=== PATIENT | female | born 1955 | race Caucasian/White ===

== ENCOUNTER 2017-06-14 05:35 | Inpatient (IN) | payer BC ==
[~2017-06-14] VITALS: Ht 157.5 cm; Wt 91.5 kg
[~2017-06-14 05:35] MED LIST: ACCU40TA PO; AMLO10TA2 PO; ASPI81TA5 PO; BIOTCAP PO; CLON0.1T PO; DAILTAB38 PO; EMPA1TAB3 PO; GLUC1000 PO; INSU1INJ14 SQ; VITA1000 PO
[2017-06-14] MEDS ORDERED: POVIDONE IODINE 5% (ANTISEPSIS KIT) 4 APPLICATIONS EACH NARE PRN (06:00)
[2017-06-14] MEDS ORDERED: LACTATED RINGER'S 1000 ML IV PRN (06:00)
[2017-06-14] MEDS ORDERED: ceFAZolin 2 GM PREMIX 50 ML IV SCH (06:00)
[2017-06-14] MEDS ORDERED: CHLORHEXIDINE GLUCONATE 2 % 1 PACK (2 CLOTHS) TOPICAL PRN (06:00)
[2017-06-14] MEDS ORDERED: SODIUM CHLORID 0.9% 500 ML IV PRN (06:00)
[2017-06-14] MEDS ORDERED: METOPROLOL TARTRATE 25 MG TAB PO PRN (06:00)
[2017-06-14] MEDS ORDERED: NOVORP2 SQ (06:28)
[2017-06-14] MEDS: INSULIN HUMAN REGULAR 1,000 UNITS/10 ML VIAL SQ PRN ×2 (06:38→21:11)
[2017-06-14 06:58] LABS: INTERNATIONAL NORMALIZED RATIO 0.9 RATIO; PROTHROMBIN TIME - PATIENT 10.3 SEC (9.8-11.6)
[2017-06-14] MEDS ORDERED: MANNITOL INJ 50 ML ONE (07:01)
[2017-06-14] MEDS ORDERED: APREPITANT 40 MG CAP ONE (07:11)
[2017-06-14] MEDS ORDERED: FAMOTIDINE 20 MG/2 ML VIAL ONE (07:12)
[2017-06-14] MEDS ORDERED: MIDAZOLAM HCL 2 MG/2 ML VIAL ONE (07:16)
[2017-06-14] MEDS ORDERED: fentaNYL CITRATE 250 MCG/5 ML AMP ONE ×2 (08:58→11:55)
[2017-06-14] MEDS ORDERED: HYDROmorphone HCL PF 2 MG/ML VIAL ONE (08:59)
[2017-06-14] MEDS ORDERED: SUGAMMADEX SODIUM 200 MG/2 ML VIAL IV PUSH ONE ×2 (08:59)
[2017-06-14] MEDS ORDERED: ONDANSETRON HCL 4 MG/2 ML VIAL IV PUSH PRN (11:30)
[2017-06-14] MEDS ORDERED: oxyCODONE/ACETAMINOPHEN 10 MG/325 MG TAB PO PRN (11:30)
[2017-06-14] MEDS: SODIUM CHLOR 0.9% 1000 ML INJ 1,000 ML IV SCH ×2 (12:00→23:00)
[2017-06-14] MEDS: ACETAMINOPHEN 1000 MG/100 ML VIAL IV SCH ×3 (12:00→23:02)
[2017-06-14] MEDS ORDERED: ePHEDrine/NS 25 MG/5 ML SYR IV ONE (12:00)
[2017-06-14] MEDS: PANTOPRAZOLE SODIUM 40 MG VIAL IV PUSH SCH (12:00)
[2017-06-14] MEDS ORDERED: LACTATED RINGER'S 1000 ML INJ 2,000 ML IV ONE (12:00)
[2017-06-14] MEDS ORDERED: ONDANSETRON HCL 4 MG/2 ML VIAL IV PUSH ONE (12:00)
[2017-06-14] MEDS ORDERED: PROPOFOL 200 MG/20 ML AMP IV ONE (12:00)
[2017-06-14] MEDS ORDERED: *HYDROmorphone PF 1 MG VIAL PERIprocedural Use ONLY ONE ×3 (12:09→14:55)
[2017-06-14] MEDS ORDERED: *LABETALOL HCL 100 MG/20 ML VIAL PERIprocedural Use ONLY ONE (12:13)
[2017-06-14] MEDS ORDERED: *ONDANSETRON 4 MG VIAL PERIprocedural Use ONLY ONE (12:15)
[2017-06-14 12:24] LABS: AUTOMATED NEUTROPHIL # 15.2 TH/MM3 (1.8-7.7); BASOPHIL # 0.1 TH/MM3 (0-0.2); BASOPHIL % 0.7 % (0.0-2.0); EOSINOPHIL # 0.1 TH/MM3 (0-0.4); EOSINOPHIL % 0.4 % (0.0-4.0); HEMATOCRIT 40.3 % (35.0-46.0); HEMO FLAGS DIFF FINAL; LYMPH % 8.5 % (9.0-44.0); LYMPHOCYTE # 1.5 TH/MM3 (1.0-4.8); MEAN CELL VOLUME 81.8 FL (80.0-100.0); MEAN CORPUSCULAR HEMOGLOBIN 26.7 PG (27.0-34.0); MEAN CORPUSCULAR HGB CONC 32.6 % (32.0-36.0); MONO % 6.6 % (0.0-8.0); NEUT % 83.8 % (16.0-70.0); PLATELET COUNT 266 TH/MM3 (150-450); RED BLOOD COUNT 4.92 MIL/MM3 (4.00-5.30); RED CELL DISTRIBUTION WIDTH 14.1 % (11.6-17.2); WHITE BLOOD COUNT 18.1 TH/MM3 (4.0-11.0)
[2017-06-14] MEDS ORDERED: DO NOT ADM ANY ANTICOAGULANT DRUGS PRN (12:30)
[2017-06-14 12:50] LABS: BICARBONATE 22.2 MEQ/L (21.0-32.0)
[2017-06-14] MEDS ORDERED: *PROMETHAZINE 25 MG/ML VIAL PERIprocedural use ONLY ONE (12:55)
--- NOTE | 2017-06-14 13:32 | EKG ---
Date Performed: 06/14/2017 Time Performed: 06:40:10 PTAGE: 61 years EKG: Sinus rhythm Left axis deviation Poor R wave progression - probable normal variant Borderline ECG NO PREVIOUS TRACING DOCTOR: Mary Kate Mccollum Interpretating Date/Time 06/14/2017 13:31:21
[2017-06-14] MEDS: CLINDAMYCIN INJ 900 MG in SODIUM CHLORIDE 0.9% INJ 100 ML IV SCH ×2 (14:55→22:02)
[2017-06-14 16:00] VITALS: BP 136/64; PULSE 103; RESP 16; TEMP 96.6; O2SAT 98
[2017-06-14] MEDS ORDERED: metFORMIN HCL 500 MG TAB PO SCH (18:00)
--- NOTE | 2017-06-14 18:02 | PD.CONS ---
HPI Service [facility] Consult Requested By Reason for Consult post-op medical management Primary Care Physician No Primary Care Physician Diagnoses: History of Present Illness patient is a 61 y/o female with history of diabetes mellitus, hypertension, who underwent left nephrectomy earlier today. she says that she was found to have a left kidney mass few years ago but this has been followed up over the past few years. she says that she had another imaging study which showed enlarged mass for which she was advised to have nephrectomy. she denies any urinary complaints including hematuria. at the time of my evaluation she was fairly comfortable although was complaining of some pain to the left flank. otherwise she denies any chest pain, sob, nausea or vomiting. Review of Systems Constitutional: DENIES: Fever, Weight loss, Chills, Night Sweats Eyes: DENIES: Blurred vision, Diplopia, Vision loss, Double Vision Ears, nose, mouth, throat: DENIES: Tinnitus, Vertigo, Throat pain, Epistaxis Respiratory: DENIES: Apneas, Cough, Snoring, Wheezing, Hemoptysis, Sputum production, Shortness of breath Cardiovascular: DENIES: Chest pain, Palpitations, Syncope, Dyspnea on Exertion , PND, Lower Extremity Edema, Orthopnea, Claudication Gastrointestinal: COMPLAINS OF: Abdominal pain (left flank.), DENIES: Black stools, Bloody stools, Constipation, Diarrhea, Nausea, Vomiting, Difficulty Swallowing, Anorexia Genitourinary: DENIES: Urinary frequency, Urgency, Hematuria, Dysuria Musculoskeletal: DENIES: Joint pain, Muscle aches, Stiffness, Joint Swelling Integumentary: DENIES: Rash Neurologic: DENIES: Abnormal gait, Headache, Localized weakness, Paresthesias, Seizures, Speech Problems, Tremor, Poor Balance Psychiatric: DENIES: Anxiety, Confusion, Mood changes, Depression, Hallucinations, Agitation, Suicidal Ideation, Homicidal Ideation, Delusions Past Family Social History Allergies: Coded Allergies: Sulfa (Sulfonamide Antibiotics) (Verified Allergy, Severe, Rash, 06/13/17) cefaclor (Verified Allergy, Severe, Rash, 06/13/17) morphine (Verified Adverse Reaction, Severe, Nausea/Vomiting, 06/13/17) Uncoded Allergies: steroids (Allergy, Severe, Shortness of Breath, 06/13/17) Past Medical History diabetes mellitus hypertension Past Surgical History oophorectomy cholecystectomy hand surgery Reported Medications amlodipine aspirin accupril cholecalciferol insulin metformin jardiance Active Ordered Medications Current Medications Lactated Ringer's 1,000 ml @ 30 mls/hr Q24H PRN IV SEE LABEL COMMENTS Last administered on 06/14/17 06:20; Start 06/14/17 at 06:00; Stop 06/14/17 at 11:58 ; Status DC Sodium Chloride 500 ml @ 30 mls/hr [id number] PRN IV SEE LABEL COMMENTS; Start at 06:00; Stop 06/14/17 at 11:58; Status DC Metoprolol Tartrate (Lopressor) 25 mg SPORTS RECRUITER PRN PO SEE LABEL COMMENTS; Start 06/14/17 at 06:00; Stop 06/17/17 at 05:59 Povidone Iodine (Betadine 5% Antisepsis Kit) 1 applic SPORTS RECRUITER PRN EACH NARE SEE LABEL COMMENTS Last administered on 06/14/17 06:34; Start 06/14/17 at 06:00 ; Stop 06/17/17 at 05:59 Chlorhexidine Gluconate (Chlorhexidine 2% Cloth) 3 pack SPORTS RECRUITER PRN TOPICAL SEE LABEL COMMENTS Last administered on 06/14/17 06:00; Start 06/14/17 at 06:00 ; Stop 06/17/17 at 05:59 Insulin Human Regular (NovoLIN R INJ) See Protocol Table ... SPORTS RECRUITER PRN SQ SEE PROTOCOL TABLE Last administered on 06/14/17 06:38; Start 06/14/17 at 06:00 ; Stop 06/17/17 at 05:59 Cefazolin Sodium/ Dextrose 50 ml @ 150 mls/hr SPORTS RECRUITER IV Last administered on 06/14/17 08:57; Start 06/14/17 at 06:00; Stop 06/17/17 at 05:59 Mannitol 50 ml @ As Directed STK-MED ONCE .ROUTE ; Start 06/14/17 at 07:01; Stop 06/14/17 at 07:02; Status DC Aprepitant (Emend) 40 mg STK-MED ONCE .ROUTE Last administered on 06/14/17 07: 11; Start 06/14/17 at 07:11; Stop 06/14/17 at 07:12; Status DC Famotidine (Pepcid Inj) 20 mg STK-MED ONCE .ROUTE Last administered on 07:12; Start 06/14/17 at 07:12; Stop 06/14/17 at 07:13; Status DC Midazolam HCl (Versed Inj) 2 mg STK-MED ONCE .ROUTE Last administered on 07:16; Start 06/14/17 at 07:16; Stop 06/14/17 at 07:17; Status DC Fentanyl Citrate (fentaNYL INJ) 500 mcg STK-MED ONCE .ROUTE ; Start 06/14/17 at 08:58; Stop 06/14/17 at 08:59; Status DC Sugammadex Sodium (Bridion Inj) 200 mg STK-MED ONCE IV PUSH ; Start 06/14/17 at 08:59; Stop 06/14/17 at 09:00; Status DC Hydromorphone HCl (Dilaudid Pf Inj) 2 mg STK-MED ONCE .ROUTE ; Start 06/14/17 at 08:59; Stop 06/14/17 at 09:00; Status DC Acetaminophen (Ofirmev 1000 Mg/ 100 ml Inj) 1,000 mg Q6H IV Last administered on 06/14/17 17:12; Start 06/14/17 at 12:00 Oxycodone/ Acetaminophen (Percocet 10-325 Mg) 1 tab Q4H PRN PO PAIN SCALE 6 TO 10; Start 06/14/17 at 11:30 Oxycodone HCl (Roxicodone) 5 mg Q4H PRN PO PAIN SCALE 3 TO 5; Start 06/14/17 at 11:30 Pantoprazole Sodium (Protonix Inj) 40 mg Q24H IV PUSH Last administered on 06/14 12:00; Start 06/14/17 at 12:00 Ondansetron HCl (Zofran Inj) 4 mg Q6HR PRN IV PUSH NAUSEA OR VOMITING; Start at 11:30 Clindamycin Phosphate 900 mg/ Sodium Chloride 106 ml @ 212 mls/hr Q8H IV Last administered on 06/14/17 14:55; Start 06/14/17 at 13:00 Sodium Chloride 1,000 ml @ 125 mls/hr Q8H IV Last administered on 06/14/17 12 :00; Start 06/14/17 at 12:00 Hydromorphone HCl (Dilaudid Pf Inj) 0.2 mg Q4H PRN IV PUSH BREAKTHROUGH PAIN; Start 06/14/17 at 11:30 Fentanyl Citrate (fentaNYL INJ) 250 mcg STK-MED ONCE .ROUTE ; Start 06/14/17 at 11:55; Stop 06/14/17 at 11:56; Status DC Hydromorphone HCl (*DILAUDID PF INJ PERIprocedural ONLY) 1 mg STK-MED ONCE .ROUTE Last administered on 06/14/17 12:09; Start 06/14/17 at 12:09; Stop at 12:10; Status DC Labetalol HCl (*TRANDATE INJ PERIprocedural Use ONLY) 100 mg STK-MED ONCE .ROUTE ; Start 06/14/17 at 12:13; Stop 06/14/17 at 12:14; Status DC Ondansetron HCl (*ZOFRAN INJ PERIprocedural ONLY) 4 mg STK-MED ONCE .ROUTE Last administered on 06/14/17 12:15; Start 06/14/17 at 12:15; Stop 06/14/17 at 12:16; Status DC Miscellaneous Information ALL NURSING DEPARTME... UNSCH PRN .XX SEE LABEL COMMENTS; Start 06/14/17 at 12:30; Stop 06/15/17 at 12:29 Hydromorphone HCl (*DILAUDID PF INJ PERIprocedural ONLY) 1 mg STK-MED ONCE .ROUTE Last administered on 06/14/17 12:33; Start 06/14/17 at 12:33; Stop at 12:34; Status DC Promethazine HCl (*PHENERGAN INJ PERIprocedural ONLY) 25 mg STK-MED ONCE .ROUTE Last administered on 06/14/17 12:55; Start 06/14/17 at 12:55; Stop 06/14/17 at 12:56; Status DC Hydromorphone HCl (*DILAUDID PF INJ PERIprocedural ONLY) 1 mg STK-MED ONCE .ROUTE Last administered on 06/14/17 14:55; Start 06/14/17 at 14:55; Stop at 14:56; Status DC Amlodipine Besylate (Norvasc) 10 mg DAILY PO ; Start 06/15/17 at 09:00; Status UNV Cholecalciferol (Vitamin D3) 1,000 units DAILY PO ; Start 06/15/17 at 09:00; Status UNV Clonidine (Catapres) 0.1 mg BID PO ; Start 06/14/17 at 21:00; Status UNV Metformin HCl (Glucophage) 1,000 mg BIDPC PO ; Start 06/14/17 at 18:00; Status UNV Lisinopril (Prinivil) 40 mg DAILY PO ; Start 06/15/17 at 09:00; Status UNV Non-Formulary Medication 5 mg DAILY PO ; Start 06/15/17 at 09:00; Status UNV Non-Formulary Medication 25 mg DAILY PO ; Start 06/15/17 at 09:00; Status UNV Non-Formulary Medication 20 units HS SQ ; Start 06/14/17 at 21:00; Status UNV Non-Formulary Medication 1 tab DAILY PO ; Start 06/15/17 at 09:00; Status UNV Insulin Human Regular (NovoLIN R SUPPLEMENTAL SCALE) 1 ACHS SLIDING SCALE SQ ; Start 06/14/17 at 21:00; Status UNV Family History diabetes Social History no smoking or drinking. Physical Exam Vital Signs Vital Signs Date Time Temp Pulse Resp B/P (MAP) Pulse Ox O2 Delivery O2 Flow Rate FiO2 06/14/17 16:00 96.6 103 16 136/64 (88) 98 06/14/17 15:15 97.4 99 15 140/84 (102) 98 Nasal Cannula 2 06/14/17 14:45 102 15 143/81 (101) 98 Nasal Cannula 2 06/14/17 14:15 101 15 146/76 (99) 98 Nasal Cannula 2 06/14/17 13:45 99 15 144/81 (102) 97 Nasal Cannula 2 06/14/17 13:15 99 17 151/83 (105) 94 Nasal Cannula 2 06/14/17 12:45 100 15 156/75 (102) 94 Nasal Cannula 2 06/14/17 12:30 100 14 151/71 (97) 98 Nasal Cannula 3 06/14/17 12:15 102 14 161/84 (109) 98 Nasal Cannula 3 06/14/17 12:00 107 14 173/78 (109) 97 Nasal Cannula 3 06/14/17 11:47 97.7 111 14 178/85 (116) 97 Nasal Cannula 3 06/14/17 06:30 99.0 79 18 142/79 (100) 97 Physical Exam GENERAL: This is a well-nourished, well-developed patient, in no apparent distress. SKIN: No rashes, ecchymoses or lesions. Cool and dry. HEAD: Atraumatic. Normocephalic. No temporal or scalp tenderness. EYES: Pupils equal round and reactive. Extraocular motions intact. No scleral icterus. No injection or drainage. ENT: Nose without bleeding, purulent drainage or septal hematoma. Throat without erythema, tonsillar hypertrophy or exudate. Uvula midline. Airway patent. NECK: Trachea midline. No JVD or lymphadenopathy. Supple, nontender, no meningeal signs. CARDIOVASCULAR: Regular rate and rhythm without murmurs, gallops, or rubs. RESPIRATORY: Clear to auscultation. Breath sounds equal bilaterally. No wheezes , rales, or rhonchi. GASTROINTESTINAL: Abdomen soft, non-tender, nondistended. No hepato-splenomegaly , or palpable masses. No guarding. MUSCULOSKELETAL: Extremities without clubbing, cyanosis, or edema. No joint tenderness, effusion, or edema noted. No calf tenderness. Negative Homans sign bilaterally. NEUROLOGICAL: Awake and alert. Cranial nerves II through XII intact. Motor and sensory grossly within normal limits. Five out of 5 muscle strength in all muscle groups. Normal speech. Laboratory Laboratory Tests Test 06/14/17 06:18 06/14/17 12:16 Prothrombin Time 10.3 Prothromb Time International Ratio 0.9 White Blood Count 18.1 Red Blood Count 4.92 Hemoglobin 13.1 Hematocrit 40.3 Mean Corpuscular Volume 81.8 Mean Corpuscular Hemoglobin 26.7 Mean Corpuscular Hemoglobin Concent 32.6 Red Cell Distribution Width 14.1 Platelet Count 266 Mean Platelet Volume 7.9 Neutrophils (%) (Auto) 83.8 Lymphocytes (%) (Auto) 8.5 Monocytes (%) (Auto) 6.6 Eosinophils (%) (Auto) 0.4 Basophils (%) (Auto) 0.7 Neutrophils # (Auto) 15.2 Lymphocytes # (Auto) 1.5 Monocytes # (Auto) 1.2 Eosinophils # (Auto) 0.1 Basophils # (Auto) 0.1 CBC Comment DIFF FINAL Differential Comment Blood Urea Nitrogen 18 Creatinine 1.55 Random Glucose 288 Calcium Level 8.9 Sodium Level 139 Potassium Level 4.0 Chloride Level 105 Carbon Dioxide Level 22.2 Anion Gap 12 Estimat Glomerular Filtration Rate 34 Result Diagram: 06/14/17 1216 06/14/17 1216 Assessment and Plan Assessment and Plan A/P - left kidney mass- s/p left nephrectomy management per Urology. -diabetes mellitus; hold metformin due to renal insufficiency- resumed other home meds- accu-check with SSI -chronic renal insufficiency- will monitor -hypertension; resumed home meds- will monitor and adjust the regimen as needed. -leukocytosis- likely reactive- will monitor CBC and temps; CBC in am -DVT prophylaxis with SCD's- per Urology thank you for the consult. Discussed Condition With the patient. Israel Ramírez MD Jun 14, 2017 18:01
[2017-06-14] MEDS ORDERED: DEXTROSE 50% IN WATER 50 ML VIAL(D50) IV PUSH PRN (19:30)
[2017-06-14] MEDS ORDERED: GLUCAGON 1 MG/ML VIAL OTHER PRN (19:30)
[2017-06-14 20:00] VITALS: BP 133/62; PULSE 94; RESP 20; TEMP 98.8; O2SAT 92
[2017-06-14] MEDS ORDERED: INSULIN DEGLUDEC 20 UNIT SQ SCH (21:00)
[2017-06-14] MEDS: INSULIN NovoLIN REGULAR SUPPLEMENTAL SCALE SQ SCH (21:00)
[2017-06-14] MEDS: cloNIDine HCL 0.1 MG TAB PO SCH (21:08)
[2017-06-15] VITALS (7 sets, daily range): BP systolic 120–139; BP diastolic 59–66; PULSE 80–95; RESP 17–20; TEMP 97.1–98.5; O2SAT 92–96
[2017-06-15] MEDS: SODIUM CHLOR 0.9% 1000 ML INJ 1,000 ML IV SCH ×3 (04:00→21:00)
[2017-06-15] MEDS: CLINDAMYCIN INJ 900 MG in SODIUM CHLORIDE 0.9% INJ 100 ML IV SCH ×3 (04:30→20:26)
[2017-06-15] MEDS: ACETAMINOPHEN 1000 MG/100 ML VIAL IV SCH ×3 (05:18→16:31)
[2017-06-15] MEDS: INSULIN NovoLIN REGULAR SUPPLEMENTAL SCALE SQ SCH ×4 (06:00→20:26)
[2017-06-15 06:54] LABS: BICARBONATE 23.2 MEQ/L (21.0-32.0)
[2017-06-15 07:20] LABS: AUTOMATED NEUTROPHIL # 6.4 TH/MM3 (1.8-7.7); BASOPHIL # 0.1 TH/MM3 (0-0.2); BASOPHIL % 1.3 % (0.0-2.0); EOSINOPHIL # 0.1 TH/MM3 (0-0.4); EOSINOPHIL % 1.1 % (0.0-4.0); HEMATOCRIT 43.9 % (35.0-46.0); HEMO FLAGS DIFF FINAL; LYMPH % 21.2 % (9.0-44.0); LYMPHOCYTE # 2.1 TH/MM3 (1.0-4.8); MEAN CELL VOLUME 83.1 FL (80.0-100.0); MEAN CORPUSCULAR HEMOGLOBIN 26.4 PG (27.0-34.0); MEAN CORPUSCULAR HGB CONC 31.7 % (32.0-36.0); MONO % 10.9 % (0.0-8.0); NEUT % 65.5 % (16.0-70.0); PLATELET COUNT 224 TH/MM3 (150-450); RED BLOOD COUNT 5.28 MIL/MM3 (4.00-5.30); RED CELL DISTRIBUTION WIDTH 14.3 % (11.6-17.2); WHITE BLOOD COUNT 9.7 TH/MM3 (4.0-11.0)
[2017-06-15] MEDS ORDERED: NON-FORMULARY DRUG (Biotin 5 MG) PO SCH (09:00)
--- NOTE | 2017-06-15 09:20 | HHI.PR ---
Subjective Remarks resting comfortably with no distress. although complaining of some pain to the left flank. no nausea or vomiting. no fever. Objective Vitals Vital Signs Date Time Temp Pulse Resp B/P (MAP) Pulse Ox O2 Delivery O2 Flow Rate FiO2 06/15/17 08:00 97.4 87 18 123/60 (81) 92 06/15/17 04:00 97.6 87 18 134/63 (86) 92 06/15/17 00:00 97.9 90 18 126/59 (81) 92 06/14/17 20:00 98.8 94 20 133/62 (85) 92 06/14/17 16:00 96.6 103 16 136/64 (88) 98 06/14/17 15:15 97.4 99 15 140/84 (102) 98 Nasal Cannula 2 06/14/17 14:45 102 15 143/81 (101) 98 Nasal Cannula 2 06/14/17 14:15 101 15 146/76 (99) 98 Nasal Cannula 2 06/14/17 13:45 99 15 144/81 (102) 97 Nasal Cannula 2 06/14/17 13:15 99 17 151/83 (105) 94 Nasal Cannula 2 06/14/17 12:45 100 15 156/75 (102) 94 Nasal Cannula 2 06/14/17 12:30 100 14 151/71 (97) 98 Nasal Cannula 3 06/14/17 12:15 102 14 161/84 (109) 98 Nasal Cannula 3 06/14/17 12:00 107 14 173/78 (109) 97 Nasal Cannula 3 06/14/17 11:47 97.7 111 14 178/85 (116) 97 Nasal Cannula 3 I/O 06/14/17 06/14/17 06/14/17 06/15/17 06/15/17 06/15/17 07:00 15:00 23:00 07:00 15:00 23:00 Intake Total 1650 ml 1836 ml 1113 ml Output Total 275 ml 300 ml 350 ml Balance 1375 ml 1536 ml 763 ml Intake Oral 0 ml IV Total 1836 ml 1113 ml Other 1650 ml Output Urine Total 225 ml 300 ml 350 ml Estimated Blood Loss 50 ml # Bowel Movements 0 Result Diagram: 06/15/17 0544 06/15/17 0544 Objective Remarks GENERAL: This is a well-nourished, well-developed patient, in no apparent distress. CARDIOVASCULAR: Regular rate and regular rhythm without murmurs, gallops, or rubs. RESPIRATORY: Clear to auscultation. Breath sounds equal bilaterally. No wheezes , rales, or rhonchi. GASTROINTESTINAL: Abdomen soft, left flank tenderness, nondistended. Normal, active bowel sounds MUSCULOSKELETAL: Extremities without clubbing, cyanosis, or edema. NEURO: Alert & Oriented x4 to person, place, time, situation. Moves all ext x4 Procedures left nephrectomy Medications and IVs Current Medications Lactated Ringer's 1,000 ml @ 30 mls/hr Q24H PRN IV SEE LABEL COMMENTS Last administered on 06/14/17 06:20; Start 06/14/17 at 06:00; Stop 06/14/17 at 11:58 ; Status DC Sodium Chloride 500 ml @ 30 mls/hr [id number] PRN IV SEE LABEL COMMENTS; Start at 06:00; Stop 06/14/17 at 11:58; Status DC Metoprolol Tartrate (Lopressor) 25 mg FAMILY HELPER PRN PO SEE LABEL COMMENTS; Start 06/14/17 at 06:00; Stop 06/17/17 at 05:59 Povidone Iodine (Betadine 5% Antisepsis Kit) 1 applic FAMILY HELPER PRN EACH NARE SEE LABEL COMMENTS Last administered on 06/14/17 06:34; Start 06/14/17 at 06:00 ; Stop 06/17/17 at 05:59 Chlorhexidine Gluconate (Chlorhexidine 2% Cloth) 3 pack FAMILY HELPER PRN TOPICAL SEE LABEL COMMENTS Last administered on 06/14/17 06:00; Start 06/14/17 at 06:00 ; Stop 06/17/17 at 05:59 Insulin Human Regular (NovoLIN R INJ) See Protocol Table ... FAMILY HELPER PRN SQ SEE PROTOCOL TABLE Last administered on 06/14/17 21:11; Start 06/14/17 at 06:00 ; Stop 06/17/17 at 05:59 Cefazolin Sodium/ Dextrose 50 ml @ 150 mls/hr FAMILY HELPER IV Last administered on 06/14/17 08:57; Start 06/14/17 at 06:00; Stop 06/17/17 at 05:59 Mannitol 50 ml @ As Directed STK-MED ONCE .ROUTE ; Start 06/14/17 at 07:01; Stop 06/14/17 at 07:02; Status DC Aprepitant (Emend) 40 mg STK-MED ONCE .ROUTE Last administered on 06/14/17 07: 11; Start 06/14/17 at 07:11; Stop 06/14/17 at 07:12; Status DC Famotidine (Pepcid Inj) 20 mg STK-MED ONCE .ROUTE Last administered on 07:12; Start 06/14/17 at 07:12; Stop 06/14/17 at 07:13; Status DC Midazolam HCl (Versed Inj) 2 mg STK-MED ONCE .ROUTE Last administered on 07:16; Start 06/14/17 at 07:16; Stop 06/14/17 at 07:17; Status DC Fentanyl Citrate (fentaNYL INJ) 500 mcg STK-MED ONCE .ROUTE ; Start 06/14/17 at 08:58; Stop 06/14/17 at 08:59; Status DC Sugammadex Sodium (Bridion Inj) 200 mg STK-MED ONCE IV PUSH ; Start 06/14/17 at 08:59; Stop 06/14/17 at 09:00; Status DC Hydromorphone HCl (Dilaudid Pf Inj) 2 mg STK-MED ONCE .ROUTE ; Start 06/14/17 at 08:59; Stop 06/14/17 at 09:00; Status DC Acetaminophen (Ofirmev 1000 Mg/ 100 ml Inj) 1,000 mg Q6H IV Last administered on 06/15/17 05:18; Start 06/14/17 at 12:00 Oxycodone/ Acetaminophen (Percocet 10-325 Mg) 1 tab Q4H PRN PO PAIN SCALE 6 TO 10; Start 06/14/17 at 11:30 Oxycodone HCl (Roxicodone) 5 mg Q4H PRN PO PAIN SCALE 3 TO 5 Last administered on 06/15/17 04:31; Start 06/14/17 at 11:30 Pantoprazole Sodium (Protonix Inj) 40 mg Q24H IV PUSH Last administered on 06/14 12:00; Start 06/14/17 at 12:00 Ondansetron HCl (Zofran Inj) 4 mg Q6HR PRN IV PUSH NAUSEA OR VOMITING; Start at 11:30 Clindamycin Phosphate 900 mg/ Sodium Chloride 106 ml @ 212 mls/hr Q8H IV Last administered on 06/15/17 04:30; Start 06/14/17 at 13:00 Sodium Chloride 1,000 ml @ 125 mls/hr Q8H IV Last administered on 06/15/17 04 :00; Start 06/14/17 at 12:00 Hydromorphone HCl (Dilaudid Pf Inj) 0.2 mg Q4H PRN IV PUSH BREAKTHROUGH PAIN; Start 06/14/17 at 11:30 Fentanyl Citrate (fentaNYL INJ) 250 mcg STK-MED ONCE .ROUTE ; Start 06/14/17 at 11:55; Stop 06/14/17 at 11:56; Status DC Hydromorphone HCl (*DILAUDID PF INJ PERIprocedural ONLY) 1 mg STK-MED ONCE .ROUTE Last administered on 06/14/17 12:09; Start 06/14/17 at 12:09; Stop at 12:10; Status DC Labetalol HCl (*TRANDATE INJ PERIprocedural Use ONLY) 100 mg STK-MED ONCE .ROUTE ; Start 06/14/17 at 12:13; Stop 06/14/17 at 12:14; Status DC Ondansetron HCl (*ZOFRAN INJ PERIprocedural ONLY) 4 mg STK-MED ONCE .ROUTE Last administered on 06/14/17 12:15; Start 06/14/17 at 12:15; Stop 06/14/17 at 12:16; Status DC Miscellaneous Information ALL NURSING DEPARTME... UNSCH PRN .XX SEE LABEL COMMENTS; Start 06/14/17 at 12:30; Stop 06/15/17 at 12:29 Hydromorphone HCl (*DILAUDID PF INJ PERIprocedural ONLY) 1 mg STK-MED ONCE .ROUTE Last administered on 06/14/17 12:33; Start 06/14/17 at 12:33; Stop at 12:34; Status DC Promethazine HCl (*PHENERGAN INJ PERIprocedural ONLY) 25 mg STK-MED ONCE .ROUTE Last administered on 06/14/17 12:55; Start 06/14/17 at 12:55; Stop 06/14/17 at 12:56; Status DC Hydromorphone HCl (*DILAUDID PF INJ PERIprocedural ONLY) 1 mg STK-MED ONCE .ROUTE Last administered on 06/14/17 14:55; Start 06/14/17 at 14:55; Stop at 14:56; Status DC Amlodipine Besylate (Norvasc) 10 mg DAILY PO ; Start 06/15/17 at 09:00 Cholecalciferol (Vitamin D3) 1,000 units DAILY PO ; Start 06/15/17 at 09:00 Clonidine (Catapres) 0.1 mg BID PO Last administered on 06/14/17 21:08; Start 06/14/17 at 21:00 Metformin HCl (Glucophage) 1,000 mg BIDPC PO ; Start 06/14/17 at 18:00; Stop at 18:04; Status DC Lisinopril (Prinivil) 40 mg DAILY PO ; Start 06/15/17 at 09:00 Non-Formulary Medication 5 mg DAILY PO ; Start 06/15/17 at 09:00; Stop 06/15/17 at 09:00; Status DC Patient Own Medication PT OWN MED: Empagliflozin (Jardian... DAILY PO ; Start at 09:00; Status Future Hold Patient Own Medication PT OWN MED: Insu... HS SQ ; Start 06/14/17 at 21:00; Status Future Hold Multivitamins (Theragran) 1 tab DAILY PO ; Start 06/15/17 at 09:00 Insulin Human Regular (NovoLIN R SUPPLEMENTAL SCALE) 1 ACHS SLIDING SCALE SQ Last administered on 06/14/17 21:00; Start 06/14/17 at 21:00 Dextrose (D50w (Vial) Inj) 50 ml UNSCH PRN IV PUSH HYPOGLYCEMIA - SEE COMMENTS ; Start 06/14/17 at 19:30 Glucagon (Glucagon Inj) 1 mg UNSCH PRN OTHER HYPOGLYCEMIA-SEE COMMENTS; Start 06/14/17 at 19:30 A/P Assessment and Plan A/P - left kidney mass- s/p left nephrectomy management per Urology. -diabetes mellitus; hold metformin due to renal insufficiency- resumed other home meds- accu-check with SSI -chronic renal insufficiency- will monitor -hypertension; resumed home meds- will monitor and adjust the regimen as needed. -leukocytosis- likely reactive-resolved- -DVT prophylaxis with SCD's- per Urology Israel Ramírez MD Jun 15, 2017 09:20
[2017-06-15] MEDS: cloNIDine HCL 0.1 MG TAB PO SCH ×2 (09:22→20:25)
[2017-06-15] MEDS: MULTIVITAMIN TAB PO SCH (09:22)
[2017-06-15] MEDS: LISINOPRIL 20 MG TAB PO SCH (09:22)
[2017-06-15] MEDS: CHOLECALCIFEROL (VIT D3) 1000 UNIT TAB PO SCH (09:22)
[2017-06-15] MEDS: HYDROmorphone HCL PF 1 MG/ML VIAL IV PUSH PRN (11:55)
[2017-06-15] MEDS: PANTOPRAZOLE SODIUM 40 MG VIAL IV PUSH SCH (11:55)
--- NOTE | 2017-06-15 12:46 | HHI.PR ---
Subjective Patient symptoms today pain controlled. tolerating clears. Denies flatus. Denies CP/SOB. Voiding on own. Ambulating to bathroom. Has appetite. Objective Vital Signs Vital Signs Date Time Temp Pulse Resp B/P (MAP) Pulse Ox O2 Delivery O2 Flow Rate FiO2 06/15/17 12:00 97.2 90 19 129/64 (85) 95 06/15/17 10:20 16 06/15/17 09:16 93 21 06/15/17 08:00 97.4 87 18 123/60 (81) 92 06/15/17 04:00 97.6 87 18 134/63 (86) 92 06/15/17 00:00 97.9 90 18 126/59 (81) 92 06/14/17 20:00 98.8 94 20 133/62 (85) 92 06/14/17 16:00 96.6 103 16 136/64 (88) 98 06/14/17 15:15 97.4 99 15 140/84 (102) 98 Nasal Cannula 2 06/14/17 14:45 102 15 143/81 (101) 98 Nasal Cannula 2 06/14/17 14:15 101 15 146/76 (99) 98 Nasal Cannula 2 06/14/17 13:45 99 15 144/81 (102) 97 Nasal Cannula 2 06/14/17 13:15 99 17 151/83 (105) 94 Nasal Cannula 2 06/14/17 12:45 100 15 156/75 (102) 94 Nasal Cannula 2 Intake & Output 06/15/17 06/15/17 07:00 19:00 Intake Total 2163 ml 1000 ml Output Total 350 ml Balance 1813 ml 1000 ml IV Total 2163 ml 1000 ml Output Urine Total 350 ml Result Diagram: 06/15/1754306/15/17543 Objective Remarks NAD. A/O x [address]AB. soft, appropriately tender, ND. inc c/d/i Ext Nt. No edema. Procedures Robotic Left Radical Nephrectomy Medications and IVs Current Medications Medications (Trade) Dose Ordered Sig/Donis Route Start Time Stop Time Status Last Admin (Lopressor) 25 mg LAND MANAGER PRN PO 06/14/17 06:00 06/17/17 05:59 (Betadine 5% Antisepsis Kit) 1 applic LAND MANAGER PRN EACH NARE 06/14/17 06:00 06/17/17 05:59 06/14/17 06:34 (Chlorhexidine 2% Cloth) 3 pack LAND MANAGER PRN TOPICAL 06/14/17 06:00 06/17/17 05:59 06/14/17 06:00 (NovoLIN R INJ) See Protocol Table ... LAND MANAGER PRN SQ 06/14/17 06:00 06/17/17 05:59 06/14/17 21:11 Cefazolin Sodium/ Dextrose 50 ml @ 150 mls/hr LAND MANAGER IV 06/14/17 06:00 06/17/17 05:59 06/14/17 08:57 (Ofirmev 1000 Mg/ 100 ml Inj) 1,000 mg Q6H IV 06/14/17 12:00 06/15/17 11:55 (Percocet 10-325 Mg) 1 tab Q4H PRN PO 06/14/17 11:30 (Roxicodone) 5 mg Q4H PRN PO 06/14/17 11:30 06/15/17 09:23 (Protonix Inj) 40 mg Q24H IV PUSH 06/14/17 12:00 06/15/17 11:55 (Zofran Inj) 4 mg Q6HR PRN IV PUSH 06/14/17 11:30 Clindamycin Phosphate 900 mg/ Sodium Chloride 106 ml @ 212 mls/hr Q8H IV 06/14/17 13:00 06/15/17 04:30 Sodium Chloride 1,000 ml @ 125 mls/hr Q8H IV 06/14/17 12:00 06/15/17 09:27 (Dilaudid Pf Inj) 0.2 mg Q4H PRN IV PUSH 06/14/17 11:30 06/15/17 11:55 (Norvasc) 10 mg DAILY PO 06/15/17 09:00 06/15/17 09:22 (Vitamin D3) 1,000 units DAILY PO 06/15/17 09:00 06/15/17 09:22 (Catapres) 0.1 mg BID PO 06/14/17 21:00 06/15/17 09:22 (Prinivil) 40 mg DAILY PO 06/15/17 09:00 06/15/17 09:22 Patient Own Medication PT OWN MED: Empagliflozin (Jardian... DAILY PO 06/15/17 09:00 Future Hold Patient Own Medication PT OWN MED: Insu... HS SQ 06/14/17 21:00 Future Hold (Theragran) 1 tab DAILY PO 06/15/17 09:00 06/15/17 09:22 (NovoLIN R SUPPLEMENTAL SCALE) 1 ACHS SLIDING SCALE SQ 06/14/17 21:00 06/14/17 21:00 (D50w (Vial) Inj) 50 ml UNSCH PRN IV PUSH 06/14/17 19:30 (Glucagon Inj) 1 mg UNSCH PRN OTHER 06/14/17 19:30 Assessment and Plan Assessment and Plan POD #1 Left robotic radical nephrectomy -hgb stable. -Advance diet -GI/DVT prophylaxis -Ambulate -Repeat BMP in A.M. Creatinine rise expected due to ATN. -Appreciate Hospitalist input. Claudio Maher MD Jun 15, 2017 12:46
[2017-06-16] VITALS (8 sets, daily range): BP systolic 130–177; BP diastolic 60–91; PULSE 72–91; RESP 12–20; TEMP 95.7–100.2; O2SAT 92–100
[2017-06-16] MEDS: ACETAMINOPHEN 1000 MG/100 ML VIAL IV SCH ×4 (00:15→17:53)
[2017-06-16] MEDS: CLINDAMYCIN INJ 900 MG in SODIUM CHLORIDE 0.9% INJ 100 ML IV SCH (05:18)
[2017-06-16] MEDS: INSULIN NovoLIN REGULAR SUPPLEMENTAL SCALE SQ SCH ×4 (06:11→21:00)
[2017-06-16] MEDS: cloNIDine HCL 0.1 MG TAB PO SCH ×2 (09:44→21:31)
[2017-06-16] MEDS: LISINOPRIL 20 MG TAB PO SCH (09:46)
[2017-06-16] MEDS: CHOLECALCIFEROL (VIT D3) 1000 UNIT TAB PO SCH (09:47)
[2017-06-16] MEDS: MULTIVITAMIN TAB PO SCH (09:47)
[2017-06-16] MEDS: INSULIN HUMAN REGULAR 1,000 UNITS/10 ML VIAL SQ PRN (11:35)
[2017-06-16] MEDS: PANTOPRAZOLE SODIUM 40 MG VIAL IV PUSH SCH (11:42)
[2017-06-16] MEDS: SODIUM CHLOR 0.9% 1000 ML INJ 1,000 ML IV SCH ×2 (11:42→23:45)
--- NOTE | 2017-06-16 11:53 | HHI.PR ---
Subjective Remarks looks and feels more comfortable today. pain is better today. had a low grade fever last night. no new complaints. Objective Vitals Vital Signs Date Time Temp Pulse Resp B/P (MAP) Pulse Ox O2 Delivery O2 Flow Rate FiO2 06/16/17 08:30 97.6 72 12 148/78 (101) 96 06/16/17 08:00 97.9 81 18 130/65 (86) 97 06/16/17 04:00 98.9 88 20 144/69 (94) 92 06/16/17 00:00 100.2 91 20 160/70 (100) 94 06/15/17 20:00 98.5 80 20 139/66 (90) 92 06/15/17 17:20 16 06/15/17 17:20 16 06/15/17 16:00 97.1 95 17 120/59 (79) 96 06/15/17 13:09 16 06/15/17 12:00 97.2 90 19 129/64 (85) 95 I/O 06/15/17 06/15/17 06/15/17 06/16/17 06/16/17 06/16/17 06:59 14:59 22:59 06:59 14:59 22:59 Intake Total 1213 ml 1206 ml 2226 ml 771 ml Output Total 350 ml 1350 ml Balance 863 ml 1206 ml 876 ml 771 ml Intake Oral 1800 ml IV Total 1213 ml 1206 ml 426 ml 771 ml Output Urine Total 350 ml 1350 ml # Voids 1 # Bowel Movements 0 Result Diagram: 06/15/17 0544 06/15/17 0544 Objective Remarks GENERAL: This is a well-nourished, well-developed patient, in no apparent distress. CARDIOVASCULAR: Regular rate and regular rhythm without murmurs, gallops, or rubs. RESPIRATORY: Clear to auscultation. Breath sounds equal bilaterally. No wheezes , rales, or rhonchi. GASTROINTESTINAL: Abdomen soft, left flank tenderness, nondistended. Normal, active bowel sounds MUSCULOSKELETAL: Extremities without clubbing, cyanosis, or edema. NEURO: Alert & Oriented x4 to person, place, time, situation. Moves all ext x4 Procedures left nephrectomy Medications and IVs Current Medications Lactated Ringer's 1,000 ml @ 30 mls/hr Q24H PRN IV SEE LABEL COMMENTS Last administered on 06/14/17 06:20; Start 06/14/17 at 06:00; Stop 06/14/17 at 11:58 ; Status DC Sodium Chloride 500 ml @ 30 mls/hr [id number] PRN IV SEE LABEL COMMENTS; Start at 06:00; Stop 06/14/17 at 11:58; Status DC Metoprolol Tartrate (Lopressor) 25 mg DOWEL SANDER OPERATOR PRN PO SEE LABEL COMMENTS; Start 06/14/17 at 06:00; Stop 06/17/17 at 05:59 Povidone Iodine (Betadine 5% Antisepsis Kit) 1 applic DOWEL SANDER OPERATOR PRN EACH NARE SEE LABEL COMMENTS Last administered on 06/14/17 06:34; Start 06/14/17 at 06:00 ; Stop 06/17/17 at 05:59 Chlorhexidine Gluconate (Chlorhexidine 2% Cloth) 3 pack DOWEL SANDER OPERATOR PRN TOPICAL SEE LABEL COMMENTS Last administered on 06/14/17 06:00; Start 06/14/17 at 06:00 ; Stop 06/17/17 at 05:59 Insulin Human Regular (NovoLIN R INJ) See Protocol Table ... DOWEL SANDER OPERATOR PRN SQ SEE PROTOCOL TABLE Last administered on 06/14/17 21:11; Start 06/14/17 at 06:00 ; Stop 06/17/17 at 05:59 Cefazolin Sodium/ Dextrose 50 ml @ 150 mls/hr DOWEL SANDER OPERATOR IV Last administered on 06/14/17 08:57; Start 06/14/17 at 06:00; Stop 06/17/17 at 05:59 Mannitol 50 ml @ As Directed STK-MED ONCE .ROUTE ; Start 06/14/17 at 07:01; Stop 06/14/17 at 07:02; Status DC Aprepitant (Emend) 40 mg STK-MED ONCE .ROUTE Last administered on 06/14/17 07: 11; Start 06/14/17 at 07:11; Stop 06/14/17 at 07:12; Status DC Famotidine (Pepcid Inj) 20 mg STK-MED ONCE .ROUTE Last administered on 07:12; Start 06/14/17 at 07:12; Stop 06/14/17 at 07:13; Status DC Midazolam HCl (Versed Inj) 2 mg STK-MED ONCE .ROUTE Last administered on 07:16; Start 06/14/17 at 07:16; Stop 06/14/17 at 07:17; Status DC Fentanyl Citrate (fentaNYL INJ) 500 mcg STK-MED ONCE .ROUTE ; Start 06/14/17 at 08:58; Stop 06/14/17 at 08:59; Status DC Sugammadex Sodium (Bridion Inj) 200 mg STK-MED ONCE IV PUSH ; Start 06/14/17 at 08:59; Stop 06/14/17 at 09:00; Status DC Hydromorphone HCl (Dilaudid Pf Inj) 2 mg STK-MED ONCE .ROUTE ; Start 06/14/17 at 08:59; Stop 06/14/17 at 09:00; Status DC Acetaminophen (Ofirmev 1000 Mg/ 100 ml Inj) 1,000 mg Q6H IV Last administered on 06/16/17 06:03; Start 06/14/17 at 12:00 Oxycodone/ Acetaminophen (Percocet 10-325 Mg) 1 tab Q4H PRN PO PAIN SCALE 6 TO 10; Start 06/14/17 at 11:30 Oxycodone HCl (Roxicodone) 5 mg Q4H PRN PO PAIN SCALE 3 TO 5 Last administered on 06/16/17 10:12; Start 06/14/17 at 11:30 Pantoprazole Sodium (Protonix Inj) 40 mg Q24H IV PUSH Last administered on 06/15 11:55; Start 06/14/17 at 12:00 Ondansetron HCl (Zofran Inj) 4 mg Q6HR PRN IV PUSH NAUSEA OR VOMITING; Start at 11:30 Clindamycin Phosphate 900 mg/ Sodium Chloride 106 ml @ 212 mls/hr Q8H IV Last administered on 06/16/17 05:18; Start 06/14/17 at 13:00 Sodium Chloride 1,000 ml @ 83 mls/hr Q12H3M IV Last administered on 06/15/17 21:00; Start 06/14/17 at 12:00 Hydromorphone HCl (Dilaudid Pf Inj) 0.2 mg Q4H PRN IV PUSH BREAKTHROUGH PAIN Last administered on 06/15/17 11:55; Start 06/14/17 at 11:30 Fentanyl Citrate (fentaNYL INJ) 250 mcg STK-MED ONCE .ROUTE ; Start 06/14/17 at 11:55; Stop 06/14/17 at 11:56; Status DC Hydromorphone HCl (*DILAUDID PF INJ PERIprocedural ONLY) 1 mg STK-MED ONCE .ROUTE Last administered on 06/14/17 12:09; Start 06/14/17 at 12:09; Stop at 12:10; Status DC Labetalol HCl (*TRANDATE INJ PERIprocedural Use ONLY) 100 mg STK-MED ONCE .ROUTE ; Start 06/14/17 at 12:13; Stop 06/14/17 at 12:14; Status DC Ondansetron HCl (*ZOFRAN INJ PERIprocedural ONLY) 4 mg STK-MED ONCE .ROUTE Last administered on 06/14/17 12:15; Start 06/14/17 at 12:15; Stop 06/14/17 at 12:16; Status DC Miscellaneous Information ALL NURSING DEPARTME... UNSCH PRN .XX SEE LABEL COMMENTS; Start 06/14/17 at 12:30; Stop 06/15/17 at 12:29; Status DC Hydromorphone HCl (*DILAUDID PF INJ PERIprocedural ONLY) 1 mg STK-MED ONCE .ROUTE Last administered on 06/14/17 12:33; Start 06/14/17 at 12:33; Stop at 12:34; Status DC Promethazine HCl (*PHENERGAN INJ PERIprocedural ONLY) 25 mg STK-MED ONCE .ROUTE Last administered on 06/14/17 12:55; Start 06/14/17 at 12:55; Stop 06/14/17 at 12:56; Status DC Hydromorphone HCl (*DILAUDID PF INJ PERIprocedural ONLY) 1 mg STK-MED ONCE .ROUTE Last administered on 06/14/17 14:55; Start 06/14/17 at 14:55; Stop at 14:56; Status DC Amlodipine Besylate (Norvasc) 10 mg DAILY PO Last administered on 06/16/17 09: 45; Start 06/15/17 at 09:00 Cholecalciferol (Vitamin D3) 1,000 units DAILY PO Last administered on 09:47; Start 06/15/17 at 09:00 Clonidine (Catapres) 0.1 mg BID PO Last administered on 06/16/17 09:44; Start 06/14/17 at 21:00 Metformin HCl (Glucophage) 1,000 mg BIDPC PO ; Start 06/14/17 at 18:00; Stop at 18:04; Status DC Lisinopril (Prinivil) 40 mg DAILY PO Last administered on 06/16/17 09:46; Start 06/15/17 at 09:00 Non-Formulary Medication 5 mg DAILY PO ; Start 06/15/17 at 09:00; Stop 06/15/17 at 09:00; Status DC Patient Own Medication PT OWN MED: Empagliflozin (Jardian... DAILY PO ; Start at 09:00; Status Future Hold Patient Own Medication PT OWN MED: Insu... HS SQ ; Start 06/14/17 at 21:00; Status Future Hold Multivitamins (Theragran) 1 tab DAILY PO Last administered on 06/16/17 09:47; Start 06/15/17 at 09:00 Insulin Human Regular (NovoLIN R SUPPLEMENTAL SCALE) 1 ACHS SLIDING SCALE SQ Last administered on 06/14/17 21:00; Start 06/14/17 at 21:00 Dextrose (D50w (Vial) Inj) 50 ml UNSCH PRN IV PUSH HYPOGLYCEMIA - SEE COMMENTS ; Start 06/14/17 at 19:30 Glucagon (Glucagon Inj) 1 mg UNSCH PRN OTHER HYPOGLYCEMIA-SEE COMMENTS; Start 06/14/17 at 19:30 A/P Assessment and Plan A/P - left kidney mass- s/p left nephrectomy management per Urology. -diabetes mellitus; hold metformin due to renal insufficiency- resumed other home meds- accu-check with SSI -chronic renal insufficiency- will monitor; BMP today pending. -hypertension; resumed home meds- will monitor and adjust the regimen as needed. -leukocytosis- likely reactive-resolved- -DVT prophylaxis with SCD's- per Urology Israel Ramírez MD Jun 16, 2017 11:53
--- NOTE | 2017-06-16 13:07 | HHI.PR ---
Subjective Patient symptoms today feels better. passing flatus. tolerating regular food. ambulating. pain controlled. Objective Vital Signs Vital Signs Date Time Temp Pulse Resp B/P (MAP) Pulse Ox O2 Delivery O2 Flow Rate FiO2 06/16/17 08:30 97.6 72 12 148/78 (101) 96 06/16/17 08:00 97.9 81 18 130/65 (86) 97 06/16/17 04:00 98.9 88 20 144/69 (94) 92 06/16/17 00:00 100.2 91 20 160/70 (100) 94 06/15/17 20:00 98.5 80 20 139/66 (90) 92 06/15/17 17:20 16 06/15/17 17:20 16 06/15/17 16:00 97.1 95 17 120/59 (79) 96 06/15/17 13:09 16 Intake & Output 06/16/17 06/16/17 07:00 19:00 Intake Total 1677 ml Output Total 600 ml Balance 1077 ml Intake Oral 480 ml IV Total 1197 ml Output Urine Total 600 ml # Voids 1 Result Diagram: 06/15/1754306/15/17543 Objective Remarks NAD. A/O x [address]AB. soft, appropriately tender, ND. inc c/d/i Ext Nt. No edema. Procedures Robotic Left Radical Nephrectomy Medications and IVs Current Medications Medications (Trade) Dose Ordered Sig/Donis Route Start Time Stop Time Status Last Admin (Lopressor) 25 mg POSTAL INSPECTOR PRN PO 06/14/17 06:00 06/17/17 05:59 (Betadine 5% Antisepsis Kit) 1 applic POSTAL INSPECTOR PRN EACH NARE 06/14/17 06:00 06/17/17 05:59 06/14/17 06:34 (Chlorhexidine 2% Cloth) 3 pack POSTAL INSPECTOR PRN TOPICAL 06/14/17 06:00 06/17/17 05:59 06/14/17 06:00 (NovoLIN R INJ) See Protocol Table ... POSTAL INSPECTOR PRN SQ 06/14/17 06:00 06/17/17 05:59 06/16/17 11:35 Cefazolin Sodium/ Dextrose 50 ml @ 150 mls/hr POSTAL INSPECTOR IV 06/14/17 06:00 06/17/17 05:59 06/14/17 08:57 (Ofirmev 1000 Mg/ 100 ml Inj) 1,000 mg Q6H IV 06/14/17 12:00 06/16/17 11:37 (Percocet 10-325 Mg) 1 tab Q4H PRN PO 06/14/17 11:30 (Roxicodone) 5 mg Q4H PRN PO 06/14/17 11:30 06/16/17 10:12 (Protonix Inj) 40 mg Q24H IV PUSH 06/14/17 12:00 06/16/17 11:42 (Zofran Inj) 4 mg Q6HR PRN IV PUSH 06/14/17 11:30 Sodium Chloride 1,000 ml @ 83 mls/hr Q12H3M IV 06/14/17 12:00 06/15/17 21:00 (Dilaudid Pf Inj) 0.2 mg Q4H PRN IV PUSH 06/14/17 11:30 06/15/17 11:55 (Norvasc) 10 mg DAILY PO 06/15/17 09:00 06/16/17 09:45 (Vitamin D3) 1,000 units DAILY PO 06/15/17 09:00 06/16/17 09:47 (Catapres) 0.1 mg BID PO 06/14/17 21:00 06/16/17 09:44 (Prinivil) 40 mg DAILY PO 06/15/17 09:00 06/16/17 09:46 Patient Own Medication PT OWN MED: Empagliflozin (Jardian... DAILY PO 06/15/17 09:00 Future Hold Patient Own Medication PT OWN MED: Insu... HS SQ 06/14/17 21:00 Future Hold (Theragran) 1 tab DAILY PO 06/15/17 09:00 06/16/17 09:47 (NovoLIN R SUPPLEMENTAL SCALE) 1 ACHS SLIDING SCALE SQ 06/14/17 21:00 06/14/17 21:00 (D50w (Vial) Inj) 50 ml UNSCH PRN IV PUSH 06/14/17 19:30 (Glucagon Inj) 1 mg UNSCH PRN OTHER 06/14/17 19:30 Assessment and Plan Assessment and Plan POD #2 Left robotic radical nephrectomy -Regular diet. -GI/DVT prophylaxis -ambulate -Hep lock IV -likely d/c tomorrow Claudio Maher MD Jun 16, 2017 13:07
[2017-06-16] MEDS ORDERED: OXYC-392 PO (13:09)
[2017-06-16 17:11] LABS: BICARBONATE 22.4 MEQ/L (21.0-32.0); POTASSIUM 4.2 MEQ/L (3.5-5.1)
[2017-06-16] MEDS ORDERED: diphenhydrAMINE HCL 50 MG/ML VIAL IV PUSH ONE (22:00)
--- NOTE | 2017-06-16 23:15 | RADRPT ---
EXAM DATE/TIME: 06/16/2017 22:36 [facility] COMPARISON: No previous studies available for comparison. INDICATIONS : Left arm swelling. MEDICAL HISTORY : Hypertension. Heart murmur. Renal disease. Diabetes. Kidney cancer. SURGICAL HISTORY : Cholecystectomy. Nephrectomy. ENCOUNTER: Initial ACUITY: 1 day PAIN SCORE: 2/10 LOCATION: Left arm. FINDINGS: There is spontaneous flow documented in the brachial, basilic, cephalic, axillary, and subclavian vei ns. The vessels are compressible and augmentation response is documented. No filling defects are se en. The flow is phasic with respiration. Direction of flow in the jugular vein is caudal. CONCLUSION: Normal examination. Hank Acevedo MD on June 16, 2017 at 23:13 Board Certified Radiologist. This report was verified electronically.
[2017-06-17] VITALS (7 sets, daily range): BP systolic 144–182; BP diastolic 64–81; PULSE 82–99; RESP 16–20; TEMP 96.7–98.7; O2SAT 96–98
[2017-06-17] MEDS: ACETAMINOPHEN 1000 MG/100 ML VIAL IV SCH (00:56)
[2017-06-17] MEDS ORDERED: diphenhydrAMINE HCL 50 MG/ML VIAL IV PUSH ONE (06:15)
[2017-06-17] MEDS ORDERED: methylPREDNISolone SOD SUCC 125 MG/2 ML VIAL IV PUSH ONE (06:15)
[2017-06-17] MEDS: INSULIN NovoLIN REGULAR SUPPLEMENTAL SCALE SQ SCH (07:00)
[2017-06-17] MEDS: SODIUM CHLOR 0.9% 1000 ML INJ 1,000 ML IV SCH (08:42)
[2017-06-17] MEDS: MULTIVITAMIN TAB PO SCH (08:42)
[2017-06-17] MEDS: cloNIDine HCL 0.1 MG TAB PO SCH (09:49)
[2017-06-17] MEDS: LISINOPRIL 20 MG TAB PO SCH (09:51)
[2017-06-17] MEDS: CHOLECALCIFEROL (VIT D3) 1000 UNIT TAB PO SCH (09:52)
[2017-06-17] MEDS: HYDROmorphone HCL PF 1 MG/ML VIAL IV PUSH PRN (09:54)
--- NOTE | 2017-06-17 10:24 | HHI.PR ---
Subjective Remarks overall doing fine. says that had some pain and nausea last night which is better now. no new complaints. Objective Vitals Vital Signs Date Time Temp Pulse Resp B/P (MAP) Pulse Ox O2 Delivery O2 Flow Rate FiO2 06/17/17 08:03 98.3 82 16 178/78 (111) 98 06/17/17 08:00 97.8 82 18 177/75 (109) 98 06/17/17 01:58 20 06/17/17 00:00 98.4 82 16 144/71 (95) 98 06/16/17 22:40 20 06/16/17 20:00 97.9 85 16 149/91 (110) 98 06/16/17 16:00 96.2 72 18 132/60 (84) 100 06/16/17 13:39 96.9 82 16 144/68 (93) 96 06/16/17 12:00 95.7 80 18 177/63 (101) 100 I/O 06/16/17 06/16/17 06/16/17 06/17/17 06/17/17 06/17/17 07:00 15:00 23:00 07:00 15:00 23:00 Intake Total 771 ml 1939 ml Output Total 1000 ml 900 ml 1000 ml Balance 771 ml 939 ml -900 ml -1000 ml Intake Oral 1080 ml IV Total 771 ml 859 ml Output Urine Total 1000 ml 900 ml 1000 ml Stool Total 0 ml # Voids 1 # Bowel Movements 0 Result Diagram: 06/15/17 0544 06/16/17 1538 Imaging Last Impressions Upper Extremity Ultrasound 06/16/17 0000 Signed Impressions: Service Date/Time: May 22:36 - CONCLUSION: Normal examination. Hank Acevedo MD Objective Remarks GENERAL: This is a well-nourished, well-developed patient, in no apparent distress. CARDIOVASCULAR: Regular rate and regular rhythm without murmurs, gallops, or rubs. RESPIRATORY: Clear to auscultation. Breath sounds equal bilaterally. No wheezes , rales, or rhonchi. GASTROINTESTINAL: Abdomen soft, left flank tenderness, nondistended. Normal, active bowel sounds MUSCULOSKELETAL: Extremities without clubbing, cyanosis, or edema. NEURO: Alert & Oriented x4 to person, place, time, situation. Moves all ext x4 Procedures left nephrectomy Medications and IVs Current Medications Lactated Ringer's 1,000 ml @ 30 mls/hr Q24H PRN IV SEE LABEL COMMENTS Last administered on 06/14/17 06:20; Start 06/14/17 at 06:00; Stop 06/14/17 at 11:58 ; Status DC Sodium Chloride 500 ml @ 30 mls/hr [id number] PRN IV SEE LABEL COMMENTS; Start at 06:00; Stop 06/14/17 at 11:58; Status DC Metoprolol Tartrate (Lopressor) 25 mg STAFF ASSISTANT PRN PO SEE LABEL COMMENTS; Start 06/14/17 at 06:00; Stop 06/17/17 at 05:59; Status Cancel Povidone Iodine (Betadine 5% Antisepsis Kit) 1 applic STAFF ASSISTANT PRN EACH NARE SEE LABEL COMMENTS Last administered on 06/14/17 06:34; Start 06/14/17 at 06:00 ; Stop 06/16/17 at 22:03; Status DC Chlorhexidine Gluconate (Chlorhexidine 2% Cloth) 3 pack STAFF ASSISTANT PRN TOPICAL SEE LABEL COMMENTS Last administered on 06/14/17 06:00; Start 06/14/17 at 06:00 ; Stop 06/16/17 at 22:02; Status DC Insulin Human Regular (NovoLIN R INJ) See Protocol Table ... STAFF ASSISTANT PRN SQ SEE PROTOCOL TABLE Last administered on 06/16/17 11:35; Start 06/14/17 at 06:00 ; Stop 06/17/17 at 05:59; Status DC Cefazolin Sodium/ Dextrose 50 ml @ 150 mls/hr STAFF ASSISTANT IV Last administered on 06/14/17 08:57; Start 06/14/17 at 06:00; Stop 06/17/17 at 05:59; Status DC Mannitol 50 ml @ As Directed STK-MED ONCE .ROUTE ; Start 06/14/17 at 07:01; Stop 06/14/17 at 07:02; Status DC Aprepitant (Emend) 40 mg STK-MED ONCE .ROUTE Last administered on 06/14/17 07: 11; Start 06/14/17 at 07:11; Stop 06/14/17 at 07:12; Status DC Famotidine (Pepcid Inj) 20 mg STK-MED ONCE .ROUTE Last administered on 07:12; Start 06/14/17 at 07:12; Stop 06/14/17 at 07:13; Status DC Midazolam HCl (Versed Inj) 2 mg STK-MED ONCE .ROUTE Last administered on 07:16; Start 06/14/17 at 07:16; Stop 06/14/17 at 07:17; Status DC Fentanyl Citrate (fentaNYL INJ) 500 mcg STK-MED ONCE .ROUTE ; Start 06/14/17 at 08:58; Stop 06/14/17 at 08:59; Status DC Sugammadex Sodium (Bridion Inj) 200 mg STK-MED ONCE IV PUSH ; Start 06/14/17 at 08:59; Stop 06/14/17 at 09:00; Status DC Hydromorphone HCl (Dilaudid Pf Inj) 2 mg STK-MED ONCE .ROUTE ; Start 06/14/17 at 08:59; Stop 06/14/17 at 09:00; Status DC Acetaminophen (Ofirmev 1000 Mg/ 100 ml Inj) 1,000 mg Q6H IV Last administered on 06/17/17 00:56; Start 06/14/17 at 12:00; Stop 06/17/17 at 06:17; Status DC Oxycodone/ Acetaminophen (Percocet 10-325 Mg) 1 tab Q4H PRN PO PAIN SCALE 6 TO 10; Start 06/14/17 at 11:30 Oxycodone HCl (Roxicodone) 5 mg Q4H PRN PO PAIN SCALE 3 TO 5 Last administered on 06/17/17 02:13; Start 06/14/17 at 11:30 Pantoprazole Sodium (Protonix Inj) 40 mg Q24H IV PUSH Last administered on 06/16 11:42; Start 06/14/17 at 12:00 Ondansetron HCl (Zofran Inj) 4 mg Q6HR PRN IV PUSH NAUSEA OR VOMITING Last administered on 06/17/17 09:27; Start 06/14/17 at 11:30 Clindamycin Phosphate 900 mg/ Sodium Chloride 106 ml @ 212 mls/hr Q8H IV Last administered on 06/16/17 05:18; Start 06/14/17 at 13:00; Stop 06/16/17 at 12:09 ; Status DC Sodium Chloride 1,000 ml @ 83 mls/hr Q12H3M IV Last administered on 06/15/17 21:00; Start 06/14/17 at 12:00 Hydromorphone HCl (Dilaudid Pf Inj) 0.2 mg Q4H PRN IV PUSH BREAKTHROUGH PAIN Last administered on 06/17/17 09:54; Start 06/14/17 at 11:30 Fentanyl Citrate (fentaNYL INJ) 250 mcg STK-MED ONCE .ROUTE ; Start 06/14/17 at 11:55; Stop 06/14/17 at 11:56; Status DC Hydromorphone HCl (*DILAUDID PF INJ PERIprocedural ONLY) 1 mg STK-MED ONCE .ROUTE Last administered on 06/14/17 12:09; Start 06/14/17 at 12:09; Stop at 12:10; Status DC Labetalol HCl (*TRANDATE INJ PERIprocedural Use ONLY) 100 mg STK-MED ONCE .ROUTE ; Start 06/14/17 at 12:13; Stop 06/14/17 at 12:14; Status DC Ondansetron HCl (*ZOFRAN INJ PERIprocedural ONLY) 4 mg STK-MED ONCE .ROUTE Last administered on 06/14/17 12:15; Start 06/14/17 at 12:15; Stop 06/14/17 at 12:16; Status DC Miscellaneous Information ALL NURSING DEPARTME... UNSCH PRN .XX SEE LABEL COMMENTS; Start 06/14/17 at 12:30; Stop 06/15/17 at 12:29; Status DC Hydromorphone HCl (*DILAUDID PF INJ PERIprocedural ONLY) 1 mg STK-MED ONCE .ROUTE Last administered on 06/14/17 12:33; Start 06/14/17 at 12:33; Stop at 12:34; Status DC Promethazine HCl (*PHENERGAN INJ PERIprocedural ONLY) 25 mg STK-MED ONCE .ROUTE Last administered on 06/14/17 12:55; Start 06/14/17 at 12:55; Stop 06/14/17 at 12:56; Status DC Hydromorphone HCl (*DILAUDID PF INJ PERIprocedural ONLY) 1 mg STK-MED ONCE .ROUTE Last administered on 06/14/17 14:55; Start 06/14/17 at 14:55; Stop at 14:56; Status DC Amlodipine Besylate (Norvasc) 10 mg DAILY PO Last administered on 06/17/17 09: 50; Start 06/15/17 at 09:00 Cholecalciferol (Vitamin D3) 1,000 units DAILY PO Last administered on 09:52; Start 06/15/17 at 09:00 Clonidine (Catapres) 0.1 mg BID PO Last administered on 06/17/17 09:49; Start 06/14/17 at 21:00 Metformin HCl (Glucophage) 1,000 mg BIDPC PO ; Start 06/14/17 at 18:00; Stop at 18:04; Status DC Lisinopril (Prinivil) 40 mg DAILY PO Last administered on 06/17/17 09:51; Start 06/15/17 at 09:00 Non-Formulary Medication 5 mg DAILY PO ; Start 06/15/17 at 09:00; Stop 06/15/17 at 09:00; Status DC Patient Own Medication PT OWN MED: Empagliflozin (Jardian... DAILY PO ; Start at 09:00; Status Future Hold Patient Own Medication PT OWN MED: Insu... HS SQ ; Start 06/14/17 at 21:00; Status Future Hold Multivitamins (Theragran) 1 tab DAILY PO Last administered on 06/16/17 09:47; Start 06/15/17 at 09:00 Insulin Human Regular (NovoLIN R SUPPLEMENTAL SCALE) 1 ACHS SLIDING SCALE SQ Last administered on 06/16/17 11:00; Start 06/14/17 at 21:00 Dextrose (D50w (Vial) Inj) 50 ml UNSCH PRN IV PUSH HYPOGLYCEMIA - SEE COMMENTS ; Start 06/14/17 at 19:30 Glucagon (Glucagon Inj) 1 mg UNSCH PRN OTHER HYPOGLYCEMIA-SEE COMMENTS; Start 06/14/17 at 19:30 Diphenhydramine HCl (Benadryl Inj) 50 mg ONCE ONCE IV PUSH Last administered on 06/17/17 00:55; Start 06/16/17 at 22:00; Stop 06/16/17 at 22:01; Status DC Diphenhydramine HCl (Benadryl Inj) 50 mg ONCE ONCE IV PUSH Last administered on 06/17/17 07:14; Start 06/17/17 at 06:15; Stop 06/17/17 at 06:19; Status DC Methylprednisolone Sodium Succinate (SoluMEDROL INJ) 125 mg ONCE ONCE IV PUSH ; Start 06/17/17 at 06:15; Stop 06/17/17 at 06:19; Status DC A/P Assessment and Plan A/P - left kidney mass- s/p left nephrectomy management per Urology. -diabetes mellitus; hold metformin and Jardiance due to renal insufficienc- resume long and short acting insulins upon discharge. -chronic renal insufficiency- f/u as outpatient. -hypertension; resumed home meds- -leukocytosis- likely reactive-resolved- -DVT prophylaxis with SCD's- per Urology Discharge Planning dc planning per Urology. f/u with pcp and endocrinology upon discharge. d/w the patient. Israel Ramírez MD Jun 17, 2017 10:24
--- NOTE | 2017-06-17 12:50 | HHI.DS ---
Discharge Summary Admission Date Jun 14, 2017 at 11:17 Discharge Date: Jun 17, 2017 Admitting Diagnosis Left Renal Mass Procedures Left Robotic Radical Nephrectomy CBC/BMP: 06/15/17 0544 06/16/17 1538 Significant Findings Laboratory Tests Test 06/15/17 05:44 06/16/17 15:38 Mean Corpuscular Hemoglobin 26.4 PG (27.0-34.0) Mean Corpuscular Hemoglobin Concent 31.7 % (32.0-36.0) Monocytes (%) (Auto) 10.9 % (0.0-8.0) Monocytes # (Auto) 1.1 TH/MM3 (0-0.9) Creatinine 1.82 MG/DL (0.50-1.00) 1.92 MG/DL (0.50-1.00) Random Glucose 109 MG/DL (74-106) 152 MG/DL (74-106) Calcium Level 8.2 MG/DL (8.5-10.1) 8.2 MG/DL (8.5-10.1) Estimat Glomerular Filtration Rate 28 ML/MIN (>89) 26 ML/MIN (>89) Hospital Course 61 yo female h/o DM underwent a Left robotic Radical Nephrectomy 06/14/2017. Her hospital course was uncomplicated. Hospitalist was consulted due to her DM. Her blood sugars remained under good control. Catheter was removed day after surgery and she was able to void on her own. She started passing flatus on POD # 2. Her pain was well controlled. She was discharged home on POD #3. Pt Condition on Discharge: Good Discharge Disposition: Discharge Home Discharge Instructions DIET: Follow Instructions for: Diabetic Diet Activities you can perform: Shower Only-No Bath Activities to avoid: Strenuous Activity Additional Activity Instructio: No heavylifting greater than 15 lbs x 4 weeks New Medications: Oxycodone (Oxycodone) 5 Mg Tab 5-10 MG PO Q4H PRN for PAIN SCALE 6 TO 10 for 7 Days, #30 TAB 0 Refills Continued Medications: Amlodipine (Amlodipine) 10 Mg Tab 10 MG PO DAILY for Blood Pressure Management, #30 TAB [address] (Aspirin DR) 81 Mg Tabdr 81 MG PO DAILY, TAB 0 Refills Biotin (Biotin) 5 Mg Cap 5 MG PO DAILY for Nutritional Supplement, #1 BOTTLE 0 Refills Cholecalciferol (Vitamin D-1000) 1,000 Unit Tab 1000 UNITS PO DAILY for Nutritional Supplement, #1 BOTTLE 0 Refills Clonidine (Clonidine) 0.1 Mg Tab 0.1 MG PO BID for Blood Pressure Management, #60 TAB 0 Refills Insulin Degludec Inj (Tresiba Flextouch Pen Inj) 300 unit/3 ML Pen 20 UNITS SQ HS for Blood Sugar Management, #15 ML 0 Refills Insulin Human Regular Inj (Novolin R Inj) 1,000 Unit/10 Ml Vial 0 SQ DIRECTED for Blood Sugar Management, #10 ML 0 Refills Sliding Scale As Directed. Multiple Vitamin (Daily Multiple Vitamin) 1 Tab Tab 1 TAB PO DAILY Quinapril (Accupril) 40 Mg Tab 40 MG PO DAILY, #30 TAB 0 Refills Discontinued Medications: Empagliflozin (Jardiance) 25 Mg Tab 25 MG PO DAILY for Blood Sugar Management, #30 TAB 0 Refills Metformin (Glucophage) 1,000 Mg Tab 1000 MG PO BIDPC for Blood Sugar Management, #60 TAB 0 Refills With a meal Claudio Maher MD Jun 17, 2017 12:50
--- NOTE | 2017-06-18 18:17 | MP ---
cc: EUGENIO AVALOS MD DATE OF SURGERY 06/14/2017 PREOPERATIVE DIAGNOSIS Left solid renal mass POSTOPERATIVE DIAGNOSIS Left solid renal mass PROCEDURE PERFORMED Left robotic radical nephrectomy with intraoperative ultrasound. SURGEON Dominik Avalos MD ANESTHESIA General COMPLICATIONS None. PREOPERATIVE DIAGNOSIS Ancef 2 grams IV DRAINS 6-Sinhala West catheter SPECIMENS Left kidney for permanent BLOOD LOSS 50 mL FLUIDS 1600 crystalloid DISPOSITION Stable to recovery. INDICATIONS The patient is a 61-year-old female who was found to have an incidental left lower pole renal mass several years ago. Over the course of the last couple years, it has grown in size. It was recommended that she have surgical removal. Treatment options were discussed and she elected proceed with laparoscopic partial nephrectomy. The risks, benefits, alternatives of the procedure were explained to her including risk of renal failure, dialysis, conversion to open and removal of the entire kidney. She elected to proceed. Informed consent was obtained. PROCEDURE IN DETAIL The patient was properly identified, brought back to the operative room, was laid supine on the operating table. Appropriate time-out was performed. Under the direction of anesthesiology, the patient was intubated and induced under general aesthetic. Antibiotics in the form of Ancef 2 grams IV were given within one hour of start of procedure. A 16-Sinhala West catheter was placed under sterile technique. Clear urine returned. The patient was then placed in right lateral decubitus position with left side up. All pressure points were padded. She was then prepped and draped in normal sterile surgical fashion. A stab incision was made superior and lateral to the umbilicus and slightly more lateral than usual due to the patient's body habitus. Veress needle was then used to gain entrance to the abdominal cavity. Pneumoperitoneum was achieved. Under direct visualization, I then placed a 12 mm long camera port. The intra-abdominal cavity was inspected. There was no evidence if any abdominal injury including bleeding. The four remaining ports were then placed under direct visualization including two 8 mm robotic ports triangulated off of the camera port and two 12 mm assistant prosecuting attorney ports within the midline of the umbilicus, one superior and one inferior to the umbilicus. The robot was then brought into position. We began by taking down the white line a Toldt and reflecting it medially to expose the retroperitoneum. We then dissected the mesentery off of the kidney which then exposed the psoas muscle. I was able to develop a plane between the psoas muscle and come across the gonadal vein and ureter. I developed a plane between the psoas muscle and the gonadal vein ureter and retracted the kidney anteriorly, then marched up the psoas muscle following the left gonadal vein into the insertion of the left renal vein. Just posterior to left renal vein was the left renal artery. Using robotic vessel sealer, I then ligated the left gonadal vein to further free up the kidney for dissection. I circumferentially dissected out the vein and the renal artery. The vein itself had a significant superior pole branch. There was only one artery seen that was consistent with CT scan findings. Once the hilum was carefully dissected out, I then freed up the kidney laterally and superior as well to further mobilize the kidney for anticipation of a partial nephrectomy. I then removed the perinephric fat from the kidney to expose the renal capsule. I did come across the tumor on the posterior lateral side of the kidney. Intraoperative ultrasound was performed to confirm that this was the mass and the size of the tumor to be approximately a little greater than 2 cm. The superior, inferior and medial edge were clearly seen. However, it was very difficult to come across the lateral edge of the tumor to find a negative margin and continued to creep along the back side and I was not confident I could get the entire tumor out safely with a negative margin. 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 At this point, attention was then turned back to the renal hilum. The endovascular stapler was then used to take the vein and artery separately. The splenorenal limb was divided and the upper pole attachments were then freed. This just left the ureter and gonadal vein. These were then taken with endovascular GI stapler. At this point, the entire kidney was free. It was placed into an EndoCatch bag for later removal. The pressure was then brought down to 7 mmHg. The hilum appeared to be dry. I did use 3 grams of Aggie for hemostatic purposes in the renal hilum and renal fossa bed. The lower robotic incision was then extended. The kidney was then extracted through that incision. The perineum was then closed with running 3-0 Vicryl. The fascia was closed with 1-0 PDS. A second look was then performed in the abdominal cavity and there was no evidence of any bleeding. The underside of the incision was free of bowel. At this point, all ports were removed under direct visualization. The incisions were closed with absorbable suture and reinforced with Dermabond. The sponge, needle and instrument counts were correct at the end of the case. The patient was extubated and sent to recovery in stable condition. She will be transferred to the floor for routine postoperative care. MD DINO José/ /2:00 PM /5:49 PM
== END 2017-06-17 14:35 | disposition home or self-care (01) | DRG 656 ==
LOC: HSDC 05:35 → HSDI 11:17 → N07B 15:30
PROVIDERS: ADMIT Urology; ATTEND Urology
PROC: 8E0W4CZ Robotic Assisted Procedure of Trunk Region, Percutaneous Endoscopic Approach (ICD-10-PCS; 2017-06-14)
PROC: 0TT14ZZ Resection of Left Kidney, Percutaneous Endoscopic Approach (ICD-10-PCS; principal; 2017-06-14 07:20)
DX: C64.2 Malignant neoplasm of left kidney, except renal pelvis (principal); N17.0 Acute kidney failure with tubular necrosis; E11.22 Type 2 diabetes mellitus with diabetic chronic kidney disease; I12.9 Hypertensive chronic kidney disease with stage 1 through stage 4 chronic kidney disease, or unspecified chronic kidney disease; N18.9 Chronic kidney disease, unspecified; Z79.84 Long term (current) use of oral hypoglycemic drugs
CPT/HCPCS: 76998; 80048; 82948; 85025; 85610; 86850; 86900; 86901; 86920; 88305; 88307; 93005; 93971; 94150; C9113; J0131; J0690; J1170; J1200; J1815; J2150; J2250; J2405; J2550; J3010; J7030; J7120; J8501